=== PATIENT | female | born 1975 | race Caucasian/White ===

== ENCOUNTER → 2016-05-03 | Outpatient (CLI) | payer MEDICAID ==
[~2016-05-03] MED LIST: AMLO5TAB2 PO; ASPI81TA85 PO; CALCIUM PO; DEPRO PROVERA IM; DIOV80TA3 PO; DITR5TAB PO; EPIP0.3I2 IM; FEXO180T58 PO; FISH100049 PO; HYDRPOW14 TOP; IBUP80TA PO; METF1000 PO; MULTCAP PO; PERCOCET PO; VICT18IN SC; ZONI100C2 PO; ZYRTTAB2 PO; [UNRECOGNIZED DRUG - OTHER] PO
[2016-05-03 07:47] LABS: MEAN CORPUSCULAR HEMOGLOBIN 30.9 pg (27.0-33.0); MEAN CORPUSCULAR HGB CONC 35.7 g/dl (32.0-36.5); MEAN CORPUSCULAR VOLUME 86.4 fl (80.0-96.0); RED CELL DISTRIBUTION WIDTH 13.3 % (11.5-14.5)
[2016-05-03 08:17] LABS: ALBUMIN 3.7 GM/DL (3.2-5.2); ALBUMIN/GLOBULIN RATIO 1.28 (1.00-1.93); BILIRUBIN,DIRECT 0.2 MG/DL (0.0-0.2); BILIRUBIN,TOTAL 0.5 MG/DL (0.2-1.0); TOTAL PROTEIN 6.6 GM/DL (6.4-8.2)
== END ==
LOC: M LAB 06:59
PROVIDERS: ATTEND Student in an Organized Health Care Education/Training Program
DX: R79.89 Other specified abnormal findings of blood chemistry (principal); E11.9 Type 2 diabetes mellitus without complications; R94.5 Abnormal results of liver function studies

== ENCOUNTER → 2016-05-03 | Outpatient (CLI) | payer MEDICAID | LOC: M LAB 07:02 | PROVIDERS: ATTEND Physician Assistant Medical | DX: E11.9 Type 2 diabetes mellitus without complications (principal) ==

== ENCOUNTER → 2016-05-16 | Outpatient (CLI) | payer MEDICAID ==
--- NOTE | 2016-05-16 09:50 | REP ---
RIGHT UPPER QUADRANT SONOGRAPHY: HISTORY: Elevated liver function studies. COMPARISON STUDY: February 17, 2012. FINDINGS: The gallbladder is surgically absent. There is increased echogenicity in the liver consistent with fatty infiltration. No focal liver lesion is seen. The liver is not felt to be enlarged. Common bile duct is normal post cholecystectomy measuring 0.87 cm. The tail of the pancreas is obscured by abdominal bowel gas. No pancreatic abnormality is observed. There is no evidence of ascites or right renal abnormality. The right kidney measures 10.4 x 6.0 x 3.8 cm. IMPRESSION: Evidence of mild fatty infiltration of the liver. The patient is post cholecystectomy. Otherwise negative right upper quadrant sonography. Signed by Steven Harris MD 05/16/2016 10:24 A
== END ==
LOC: M RAD 08:44
PROVIDERS: ATTEND Student in an Organized Health Care Education/Training Program
DX: R94.5 Abnormal results of liver function studies (principal); K76.0 Fatty (change of) liver, not elsewhere classified

== ENCOUNTER → 2016-05-18 | Outpatient (CLI) | payer MEDICAID ==
[2016-05-18 09:39] LABS: REASON FOR REVIEW PLATELET MORPHOLOGY
== END ==
LOC: M LAB 08:49
PROVIDERS: ATTEND Student in an Organized Health Care Education/Training Program
DX: D69.6 Thrombocytopenia, unspecified (principal)

== ENCOUNTER 2016-06-07 17:52 | Emergency (ER) | payer MEDICAID, OTHER ==
[2016-06-07] MEDS ORDERED: IBUPROFEN 600 MG TAB As Ordered ONE (18:20)
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
--- NOTE | 2016-06-07 20:13 | REP ---
LUMBAR SPINE COMPLETE: 06/07/2016. Comparison 08/16/2014. Clinical history: Trauma. Findings: Five views are provided. Pedicles, spinous and transverse processes intact. The lower thoracic levels and visualized ribs intact. SI joints, sacral ala and foramina unremarkable. Oblique views show no spondylolysis or spondylolisthesis. Lateral view shows slight narrowing L5-S1 disc space with the other disc space heights and all vertebral body heights intact. Minor hypertrophic facet changes noted at L4-L5 and L5-S1 levels. No compression deformities or effective lesion. Impression: 1. Some minor degenerative disc changes without compression deformity of destructive lesion. Stable appearance compared to the 2014 exam. Signed by Andrzej Lynn MD 06/08/2016 07:16 P
--- NOTE | 2016-06-07 20:13 | REP ---
THORACIC SPINE SERIES, COMPLETE: 06/07/2016. Clinical history: Trauma. Comparison: 08/16/2014. Findings: Three views are provided. The pedicles, spinous and transverse processes along with the posterior rib articulations and medial clavicles were all intact. Paraspinal lines intact. The lateral view shows marginal osteophytes lower thoracic spine without compression deformity or disc space narrowing. The thoracic junction aligns normally. Impression: 1. Minor degenerative disc changes without fracture or destructive lesion. Signed by Andrzej Lynn MD 06/08/2016 07:16 P
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
== END 2016-06-07 19:15 | disposition home or self-care (01) ==
LOC: M ED 17:52
DX: S13.4XXA Sprain of ligaments of cervical spine, initial encounter (principal); S33.5XXA Sprain of ligaments of lumbar spine, initial encounter; S23.3XXA Sprain of ligaments of thoracic spine, initial encounter; E11.9 Type 2 diabetes mellitus without complications; Z79.82 Long term (current) use of aspirin; Z79.899 Other long term (current) drug therapy; Z88.1 Allergy status to other antibiotic agents; V49.50XA Passenger injured in collision with unspecified motor vehicles in traffic accident, initial encounter; Y92.410 Unspecified street and highway as the place of occurrence of the external cause; Y93.89 Activity, other specified; Y99.9 Unspecified external cause status

== ENCOUNTER → 2016-08-27 | Outpatient (CLI) | payer MEDICAID, OTHER ==
[2016-08-27 07:40] LABS: ANION GAP 8 MEQ/L (8-16); BLOOD UREA NITROGEN 13 MG/DL (7-18); CALCIUM LEVEL 8.5 MG/DL (8.5-10.1); CARBON DIOXIDE LEVEL 25 MEQ/L (21-32); CHLORIDE LEVEL 109 MEQ/L (98-107); CREATININE FOR GFR 0.85 MG/DL (0.55-1.02); GLOMERULAR FILTRATION RATE > 60.0 (>58); GLUCOSE, FASTING 145 MG/DL (70-105); SODIUM LEVEL 142 MEQ/L (136-145)
== END ==
LOC: M LAB 06:28
PROVIDERS: ATTEND Physician Assistant Medical
DX: E11.9 Type 2 diabetes mellitus without complications (principal)

== ENCOUNTER → 2016-10-23 | Outpatient (REF) | payer MEDICAID ==
[2016-10-23 13:56] LABS: ALBUMIN/GLOBULIN RATIO 1.25 (1.00-1.93); BILIRUBIN,DIRECT 0.1 MG/DL (0.0-0.2); BILIRUBIN,TOTAL 0.5 MG/DL (0.2-1.0); TOTAL PROTEIN 7.2 GM/DL (6.4-8.2)
[2016-10-23 14:02] LABS: COLLAGEN ADP 181 SECONDS (56-103)
[2016-10-26 00:07] LABS: PLATLELET ANTIBODIES 1 Negative (Negative); PLATLELET ANTIBODIES 2 Negative (Negative); PLATLELET ANTIBODIES 4 Negative (Negative)
== END ==
LOC: M SFHCPLAZ 10:52
PROVIDERS: ATTEND Family Medicine
DX: R74.0 Nonspecific elevation of levels of transaminase and lactic acid dehydrogenase [LDH] (principal); K76.0 Fatty (change of) liver, not elsewhere classified; D69.6 Thrombocytopenia, unspecified

== ENCOUNTER → 2016-11-21 | Outpatient (CLI) | payer MEDICAID ==
[~2016-11-21] MED LIST changes: +CETI10TA PO; +INVO100T PO; +LIPI10TA PO; -METF1000 PO; +METF10004 PO; +PEPC1TAB4 PO; +SUCR1SS PO; -ZYRTTAB2 PO; +ZYRTTAB8 PO
--- NOTE | 2016-11-21 09:36 | REPMRS ---
Patient History The patient states she had a clinical breast exam in Patient is postmenopausal and is nulliparous. Family history of breast cancer in maternal aunt under age 50. Taking unspecified hormones for 2 years beginning at age 39. Digital Woman Screen Mammo: November 21, 2016 - Exam #: [id number] Bilateral CC and MLO view(s) were taken. Technologist: Padmini Crowe, Technologist Prior study comparison: November 03, 2015, digital woman screen mammo performed at [facility]. November 02, 2014, digital woman screen mammo performed at [facility]. FINDINGS: There are scattered fibroglandular densities. There has been no change in the appearance of the mammogram from the prior studies. There is a mild amount of residual fibroglandular tissue which is fairly symmetric. There is no interval development of dominant mass, architectural distortion, or clustered microcalcification suggestive of malignancy. ASSESSMENT: BI-RADS/ACR category 1 mammogram. Negative. Recommendation Routine screening mammogram in 1 year (for women over age 40). This mammogram was interpreted with the aid of an FDA-approved computer-aided dectection system. Electronically Signed By: Luca Victoria MD 11/21/16 0936
== END ==
LOC: M WHC 08:19
PROVIDERS: ATTEND Nurse Practitioner Women's Health
DX: Z12.31 Encounter for screening mammogram for malignant neoplasm of breast (principal); Z78.0 Asymptomatic menopausal state; Z79.890 Hormone replacement therapy

== ENCOUNTER 2017-01-05 13:21 | Emergency (ER) | payer MEDICAID ==
[~2017-01-05] VITALS: Ht 162.6 cm; Wt 190.0 kg
[~2017-01-05 13:21] MED LIST changes: -CETI10TA PO; -INVO100T PO; -LIPI10TA PO; -PEPC1TAB4 PO; -SUCR1SS PO
[2017-01-05] MEDS ORDERED: GI COCKTAIL 50ML BTL(HYOSCYAMINE/MAALOX/LIDOCAINE VISCOUS)(1:3:1) PO ONE (13:45)
[2017-01-05] MEDS ORDERED: LIPI10TA PO (14:06)
[2017-01-05] MEDS ORDERED: CETI10TA PO (14:06)
[2017-01-05] MEDS ORDERED: INVO100T PO (14:06)
[2017-01-05 14:17] LABS: BASO % 0.5 % (0.0-1.0); EOS # 0.2 K/mm3 (0.0-0.50); LARGE UNSTAINED CELL # 0.1 K/mm3 (0.0-0.4); LYMPH # 1.2 K/mm3 (1.5-4.5); LYMPH % 20.2 % (24.0-44.0); MEAN CORPUSCULAR HEMOGLOBIN 30.9 pg (27.0-33.0); MEAN CORPUSCULAR HGB CONC 35.2 g/dl (32.0-36.5); MEAN CORPUSCULAR VOLUME 87.8 fl (80.0-96.0); MONO # 0.3 K/mm3 (0.0-0.8); MONO % 4.6 % (0.0-5.0); NEUTROPHILS % 70.7 % (36.0-66.0); PLATELET COUNT, AUTOMATED 118 k/mm3 (150-450); RED CELL DISTRIBUTION WIDTH 13.5 % (11.5-14.5); WHITE BLOOD COUNT 5.7 K/mm3 (4.0-10.0)
[2017-01-05 14:36] LABS: ALBUMIN 3.9 GM/DL (3.2-5.2); ALBUMIN/GLOBULIN RATIO 1.34 (1.00-1.93); ALKALINE PHOSPHATASE 85 U/L (45-117); ALT/SGPT 45 U/L (12-78); ANION GAP 11 MEQ/L (8-16); AST/SGOT 22 U/L (15-37); BILIRUBIN,DIRECT 0.2 MG/DL (0.0-0.2); BILIRUBIN,TOTAL 0.6 MG/DL (0.2-1.0); BLOOD UREA NITROGEN 12 MG/DL (7-18); CALCIUM LEVEL 9.5 MG/DL (8.5-10.1); CARBON DIOXIDE LEVEL 24 MEQ/L (21-32); CHLORIDE LEVEL 107 MEQ/L (98-107); CREATININE FOR GFR 0.92 MG/DL (0.55-1.02); GLOMERULAR FILTRATION RATE > 60.0 (>58); GLUCOSE, FASTING 231 MG/DL (70-105); POTASSIUM SERUM 3.6 MEQ/L (3.5-5.1); SODIUM LEVEL 142 MEQ/L (136-145); TOTAL PROTEIN 6.8 GM/DL (6.4-8.2)
[2017-01-05] MEDS ORDERED: SUCRALFATE SUSP 1GM/10ML UD PO ONE (14:45)
[2017-01-05] MEDS ORDERED: PEPC1TAB4 PO (14:45)
[2017-01-05] MEDS ORDERED: SUCR1SS PO (14:45)
[2017-01-05] MEDS ORDERED: ISOVUE-370 76% 100ML VIAL (Q9967) As Ordered ONE (15:38)
[2017-01-05] MEDS ORDERED: PANTOPRAZOLE 40MG TAB (PROTONIX) PO ONE (16:30)
--- NOTE | 2017-01-05 16:51 | REP ---
Clinical: Abdominal pain. Technique: Axial contrast enhanced images from the lung bases to the pubic symphysis using 100 ml Isovue 370 intravenous contrast material with coronal and sagittal re-formations. Findings: Lung bases cannot exclude mild bronchitis. Visualized heart and pericardium normal. Mild fatty infiltration to the liver suggested without focal hepatic lesion. Spleen, pancreas, bilateral adrenal glands and kidneys are normal. 2-3 mm bilateral nonobstructing nephroliths are suggested without perinephric stranding or hydronephrosis. The enteric system demonstrates diffusely fluid-filled nondilated small bowel and cecum which is nonspecific but cannot exclude enteritis. Pelvis demonstrates normal bladder and evidence for prior hysterectomy. No ascites. No free air. No adenopathy. Vasculature normal. Surrounding musculoskeletal structures are intact. Impression: Cannot exclude a mild enteritis. Cannot exclude very mild lower lobe bronchitis. 2-3 mm bilateral nonobstructing nephroliths. No further acute abdominopelvic pathology appreciated. Signed by Boni Sol MD 01/05/2017 04:42 P
[2017-01-05 17:29] VITALS: BP 114/92
--- NOTE | 2017-01-05 18:25 | ECGEPIP ---
Stationary ECG Study [facility] - ED Test Date: 2017-01-05 Pat Name: ANKUSH LYNN Department: Room: - Gender: F Title Officer: rn : 1975 Requested By: Kylee Anderson Order Number: [id number] Reading MD: Kylee Anderson Measurements Intervals [place] Rate: 72 P: 31 MO: 163 QRS: 81 QRSD: 89 T: 13 QT: 394 QTc: 434 Interpretive Statements SINUS RHYTHM NONSPECIFIC T-WAVE ABNORMALITY LOW VOLTAGE LIMB PRWP Electronically Signed On 01-05-2017 18:25:25 EDT by Kylee Anderson
== END 2017-01-05 17:37 | disposition home or self-care (01) ==
LOC: EDBD 13:21 → M ED 13:21
DX: R10.9 Unspecified abdominal pain (principal); E11.9 Type 2 diabetes mellitus without complications; I10 Essential (primary) hypertension; E78.9 Disorder of lipoprotein metabolism, unspecified; G43.909 Migraine, unspecified, not intractable, without status migrainosus; K90.0 Celiac disease; K76.0 Fatty (change of) liver, not elsewhere classified; F70 Mild intellectual disabilities; Z87.820 Personal history of traumatic brain injury; M62.81 Muscle weakness (generalized); Z88.0 Allergy status to penicillin; Z79.82 Long term (current) use of aspirin; Z79.899 Other long term (current) drug therapy; Z79.84 Long term (current) use of oral hypoglycemic drugs
CPT/HCPCS: 36415; 74177; 80048; 80076; 83690; 85025; 93005; 99284; Q9967

== ENCOUNTER → 2017-01-10 | Outpatient (REF) | payer MEDICAID ==
[~2017-01-10] MED LIST changes: +CETI10TA PO; +INVO100T PO; +LIPI10TA PO; +PEPC1TAB4 PO; +SUCR1SS PO
[2017-01-10 13:52] LABS: BASO # 0.1 K/mm3 (0.0-0.2); EOS # 0.2 K/mm3 (0.0-0.50); EOS % 4.3 % (0.0-3.0); LARGE UNSTAINED CELL # 0.1 K/mm3 (0.0-0.4); LARGE UNSTAINED CELL % 0.9 % (0.0-4.0); LYMPH # 1.8 K/mm3 (1.5-4.5); LYMPH % 31.2 % (24.0-44.0); MEAN CORPUSCULAR HEMOGLOBIN 30.5 pg (27.0-33.0); MEAN CORPUSCULAR HGB CONC 34.3 g/dl (32.0-36.5); MONO # 0.3 K/mm3 (0.0-0.8); MONO % 5.4 % (0.0-5.0); NEUTROPHILS # 3.2 K/mm3 (1.8-7.7); NEUTROPHILS % 57.2 % (36.0-66.0); PLATELET COUNT, AUTOMATED 126 k/mm3 (150-450); RED CELL DISTRIBUTION WIDTH 13.8 % (11.5-14.5); WHITE BLOOD COUNT 5.6 K/mm3 (4.0-10.0)
== END ==
LOC: M SFHCPLAZ 10:47
PROVIDERS: ATTEND Family Medicine
DX: D69.6 Thrombocytopenia, unspecified (principal)

== ENCOUNTER → 2017-02-10 | Outpatient (CLI) | payer MEDICAID ==
--- NOTE | 2017-02-10 18:54 | REP ---
Right middle finger four views : There is no fracture or dislocation. Mineralization and joint spaces are normal. There are no calcifications or foreign bodies. Impression: Negative Right middle finger . Signed by Luca Mendosa MD 02/10/2017 06:45 P
== END ==
LOC: M RAD 18:06
PROVIDERS: ATTEND Physician Assistant Medical
DX: S67.192A Crushing injury of right middle finger, initial encounter (principal); X58.XXXA Exposure to other specified factors, initial encounter; Y92.89 Other specified places as the place of occurrence of the external cause; Y99.9 Unspecified external cause status; Y93.9 Activity, unspecified

== ENCOUNTER → 2017-03-26 | Outpatient (CLI) | payer MEDICAID ==
[2017-03-26 15:25] LABS: ANION GAP 8 MEQ/L (8-16); BLOOD UREA NITROGEN 18 MG/DL (7-18); CALCIUM LEVEL 9.5 MG/DL (8.5-10.1); CARBON DIOXIDE LEVEL 31 MEQ/L (21-32); CHLORIDE LEVEL 103 MEQ/L (98-107); GLOMERULAR FILTRATION RATE > 60.0 (>58); GLUCOSE, FASTING 142 MG/DL (70-105); SODIUM LEVEL 142 MEQ/L (136-145)
== END ==
LOC: M LAB 13:57
PROVIDERS: ATTEND Nurse Practitioner Family
DX: E11.9 Type 2 diabetes mellitus without complications (principal)

== ENCOUNTER → 2017-06-26 | Outpatient (REF) | payer MEDICAID ==
[2017-06-26 13:25] LABS: ANION GAP 6 MEQ/L (8-16); BLOOD UREA NITROGEN 15 MG/DL (7-18); CALCIUM LEVEL 8.9 MG/DL (8.5-10.1); CARBON DIOXIDE LEVEL 29 MEQ/L (21-32); CHLORIDE LEVEL 109 MEQ/L (98-107); CHOLESTEROL LEVEL 121 MG/DL (<200); CHOLESTEROL RISK RATIO 3.184 (<5); CREATININE FOR GFR 0.75 MG/DL (0.55-1.30); GLOMERULAR FILTRATION RATE > 60.0 (>58); GLUCOSE, FASTING 153 MG/DL (70-100); HDL CHOLESTEROL 38 MG/DL (>40); LDL CHOLESTEROL 43.2 MG/DL (<100); NON-HDL-C 83 MG/DL; POTASSIUM SERUM 4.5 MEQ/L (3.5-5.1); SODIUM LEVEL 144 MEQ/L (136-145); TRIGLYCERIDES LEVEL 199 MG/DL (<150)
[2017-06-26 13:59] LABS: ESTIMATED AVERAGE GLUCOSE 154 MG/DL (60-110)
== END ==
LOC: M LABDRAW1 11:51
DX: E11.9 Type 2 diabetes mellitus without complications (principal); E78.2 Mixed hyperlipidemia
CPT/HCPCS: 83036

== ENCOUNTER → 2017-11-21 | Outpatient (CLI) | payer MEDICAID | LOC: M WHC 08:59 | DX: Z12.31 Encounter for screening mammogram for malignant neoplasm of breast (principal) ==

== ENCOUNTER → 2017-12-15 | Outpatient (CLI) | payer MEDICAID ==
[2017-12-15 08:36] LABS: ANION GAP 10 MEQ/L (8-16); BLOOD UREA NITROGEN 16 MG/DL (7-18); CALCIUM LEVEL 8.6 MG/DL (8.5-10.1); CARBON DIOXIDE LEVEL 24 MEQ/L (21-32); CHLORIDE LEVEL 110 MEQ/L (98-107); CREATININE FOR GFR 0.86 MG/DL (0.55-1.30); GLOMERULAR FILTRATION RATE > 60.0 (>58); GLUCOSE, FASTING 133 MG/DL (70-100); POTASSIUM SERUM 3.8 MEQ/L (3.5-5.1); SODIUM LEVEL 144 MEQ/L (136-145)
[2017-12-15 08:38] LABS: ESTIMATED AVERAGE GLUCOSE 157 MG/DL (60-110); HEMOGLOBIN A1c 7.1 %
[2017-12-15 08:50] LABS: CREATININE, URINE 89.9 MG/DL; MALB URINE SIEMENS 5.7 MG/L; MAU/CREAT RATIO 6.3 MCG/MG (0.0-30.0)
== END ==
LOC: M LAB 06:46
DX: E11.9 Type 2 diabetes mellitus without complications (principal)

== ENCOUNTER → 2017-12-16 | Outpatient (CLI) | payer MEDICAID ==
[2017-12-16 07:40] LABS: BASO # 0.1 10^3/uL (0.0-0.2); EOS # 0.2 10^3/uL (0.0-0.50); EOS % 3.6 % (0.0-3.0); HEMATOCRIT 42.1 % (36.0-47.0); HEMOGLOBIN 14.9 g/dl (12.0-15.5); IMMATURE GRANULOCYTE % 0.2 % (0-3.0); LYMPH # 1.9 10^3/uL (1.5-4.5); LYMPH % 32.9 % (24.0-44.0); MEAN CORPUSCULAR HGB CONC 35.4 g/dl (32.0-36.5); MEAN CORPUSCULAR VOLUME 87.7 fl (80.0-96.0); MONO # 0.4 10^3/uL (0.0-0.8); MONO % 6.7 % (0.0-5.0); NEUTROPHILS # 3.2 10^3/uL (1.8-7.7); NEUTROPHILS % 55.6 % (36.0-66.0); PLATELET COUNT, AUTOMATED 144 10^3/uL (150-450); RED CELL DISTRIBUTION WIDTH 13.9 % (11.5-14.5); WHITE BLOOD COUNT 5.8 10^3/uL (4.0-10.0)
[2017-12-16 08:22] LABS: ALBUMIN/GLOBULIN RATIO 1.38 (1.00-1.93); ALKALINE PHOSPHATASE 88 U/L (45-117); ALT/SGPT 46 U/L (12-78); ANION GAP 9 MEQ/L (8-16); AST/SGOT 29 U/L (7-37); BILIRUBIN,TOTAL 0.7 MG/DL (0.2-1.0); BLOOD UREA NITROGEN 20 MG/DL (7-18); CALCIUM LEVEL 8.8 MG/DL (8.5-10.1); CARBON DIOXIDE LEVEL 26 MEQ/L (21-32); CHLORIDE LEVEL 109 MEQ/L (98-107); CHOLESTEROL LEVEL 116 MG/DL (<200); CHOLESTEROL RISK RATIO 3.135 (<5); GLOMERULAR FILTRATION RATE > 60.0 (>58); GLUCOSE, FASTING 152 MG/DL (70-100); HDL CHOLESTEROL 37 MG/DL (>40); LDL CHOLESTEROL 38.8 MG/DL (<100); NON-HDL-C 79 MG/DL; SODIUM LEVEL 144 MEQ/L (136-145); TOTAL PROTEIN 6.9 GM/DL (6.4-8.2); TRIGLYCERIDES LEVEL 201 MG/DL (<150)
== END ==
LOC: M LAB 06:55
DX: K76.0 Fatty (change of) liver, not elsewhere classified (principal)
CPT/HCPCS: 80053

== ENCOUNTER → 2018-01-15 | Outpatient (CLI) | payer MEDICAID | LOC: M RAD 08:26 | DX: K76.0 Fatty (change of) liver, not elsewhere classified (principal); Z90.49 Acquired absence of other specified parts of digestive tract | CPT/HCPCS: 76705 ==

== ENCOUNTER → 2018-01-28 | Outpatient (CLI) | payer MEDICAID ==
[2018-01-28 08:36] LABS: ALBUMIN 4.2 GM/DL (3.2-5.2); ALBUMIN/GLOBULIN RATIO 1.56 (1.00-1.93); ALKALINE PHOSPHATASE 81 U/L (45-117); ALT/SGPT 51 U/L (12-78); ANION GAP 9 MEQ/L (8-16); AST/SGOT 31 U/L (7-37); BILIRUBIN,TOTAL 0.8 MG/DL (0.2-1.0); BLOOD UREA NITROGEN 23 MG/DL (7-18); CALCIUM LEVEL 9.2 MG/DL (8.5-10.1); CARBON DIOXIDE LEVEL 24 MEQ/L (21-32); CHLORIDE LEVEL 114 MEQ/L (98-107); CREATININE FOR GFR 0.77 MG/DL (0.55-1.30); GLOMERULAR FILTRATION RATE > 60.0 (>58); GLUCOSE, FASTING 142 MG/DL (70-100); POTASSIUM SERUM 3.9 MEQ/L (3.5-5.1); SODIUM LEVEL 147 MEQ/L (136-145); TOTAL PROTEIN 6.9 GM/DL (6.4-8.2)
== END ==
LOC: M LAB 06:25
DX: K76.0 Fatty (change of) liver, not elsewhere classified (principal)
CPT/HCPCS: 80053

== ENCOUNTER → 2018-02-18 | Outpatient (CLI) | payer MEDICAID | LOC: M RAD 09:29 | DX: M25.511 Pain in right shoulder (principal) | CPT/HCPCS: 73030 ==

== ENCOUNTER → 2018-06-09 | Outpatient (CLI) | payer MEDICAID ==
[~2018-06-09] MED LIST changes: -AMLO5TAB2 PO; +AMLO5TAB6 PO; +ESTR0.059 TD; -PEPC1TAB4 PO; +PEPC1TAB5 PO
[2018-06-09 07:24] LABS: BASO # 0.1 10^3/uL (0.0-0.2); BASO % 1.1 % (0.0-1.0); EOS # 0.2 10^3/uL (0.0-0.50); EOS % 4.2 % (0.0-3.0); HEMOGLOBIN 15.2 g/dl (12.0-15.5); LYMPH # 1.9 10^3/uL (1.5-4.5); LYMPH % 33.6 % (24.0-44.0); MEAN CORPUSCULAR HEMOGLOBIN 31.1 pg (27.0-33.0); MEAN CORPUSCULAR HGB CONC 34.5 g/dl (32.0-36.5); MEAN CORPUSCULAR VOLUME 90.2 fl (80.0-96.0); MONO # 0.4 10^3/uL (0.0-0.8); MONO % 6.4 % (0.0-5.0); NEUTROPHILS % 54.3 % (36.0-66.0); PLATELET COUNT, AUTOMATED 131 10^3/uL (150-450); RED BLOOD COUNT 4.88 10^6/uL (4.00-5.40); WHITE BLOOD COUNT 5.5 10^3/uL (4.0-10.0)
[2018-06-09 07:45] LABS: ALT/SGPT 31 U/L (12-78); BILIRUBIN,TOTAL 0.8 MG/DL (0.2-1.0); BLOOD UREA NITROGEN 14 MG/DL (7-18); CALCIUM LEVEL 8.7 MG/DL (8.5-10.1); CARBON DIOXIDE LEVEL 26 MEQ/L (21-32); CHLORIDE LEVEL 108 MEQ/L (98-107); CHOLESTEROL LEVEL 107 MG/DL (<200); CHOLESTEROL RISK RATIO 3.057 (<5); CREATININE FOR GFR 0.89 MG/DL (0.55-1.30); GLOMERULAR FILTRATION RATE > 60.0 (>58); GLUCOSE, FASTING 146 MG/DL (70-100); HDL CHOLESTEROL 35 MG/DL (>40); LDL CHOLESTEROL 28 MG/DL (<100); NON-HDL-C 72 MG/DL; POTASSIUM SERUM 3.7 MEQ/L (3.5-5.1); SODIUM LEVEL 141 MEQ/L (136-145); TOTAL PROTEIN 6.4 GM/DL (6.4-8.2); TRIGLYCERIDES LEVEL 219 MG/DL (<150)
== END ==
LOC: M LAB 06:46
PROVIDERS: ATTEND Student in an Organized Health Care Education/Training Program
DX: D69.6 Thrombocytopenia, unspecified (principal); K76.0 Fatty (change of) liver, not elsewhere classified; E78.2 Mixed hyperlipidemia

== ENCOUNTER → 2018-06-16 | Outpatient (CLI) | payer MEDICAID ==
--- NOTE | 2018-06-16 11:21 | REP ---
HEPATIC ULTRASOUND: 06/16/2018. Comparison: 01/15/2018. Clinical history: KAM. Findings: Sonographic evaluation again shows the liver diffusely hyperechoic in a homogeneous fashion consistent with fatty infiltration. There is no discrete hepatic mass, intrahepatic biliary dilatation nor perihepatic ascites. Gallbladder is surgically absent. Common duct is 6 mm and unremarkable. Views of the pancreas are quite limited due to gas shadowing. The right kidney is 10.1 x 5.3 x 3.7 cm without hydronephrosis or stone. Impression: 1. Diffuse fatty infiltration of the liver, otherwise negative study. 2. Status post cholecystectomy, no common duct dilatation or stone. Stable examination. Electronically Signed by Andrzej Lynn MD 06/16/2018 05:48 P
== END ==
LOC: M RAD 08:02
PROVIDERS: ATTEND Student in an Organized Health Care Education/Training Program
DX: K76.0 Fatty (change of) liver, not elsewhere classified (principal)

== ENCOUNTER → 2018-06-23 | Outpatient (REF) | payer MEDICAID ==
[2018-06-23 15:41] LABS: HEMOGLOBIN A1c 7.3 %
== END ==
LOC: M LABDRAW1 09:30
PROVIDERS: ATTEND Nurse Practitioner Family
DX: E11.9 Type 2 diabetes mellitus without complications (principal)

== ENCOUNTER → 2018-07-06 | Outpatient (CLI) | payer MEDICAID ==
[2018-07-06 07:23] LABS: HEMOGLOBIN A1c 6.6 %
[2018-07-06 07:31] LABS: MALB URINE SIEMENS < 5.0 MG/L; MAU/CREAT RATIO 4.3 MCG/MG (0.0-30.0)
== END ==
LOC: M LAB 06:35
PROVIDERS: ATTEND Student in an Organized Health Care Education/Training Program
DX: E11.9 Type 2 diabetes mellitus without complications (principal)

== ENCOUNTER → 2019-07-02 | Outpatient (CLI) | payer MEDICAID ==
[~2019-07-02] MED LIST changes: +ZONI100C17 PO; -ZONI100C2 PO
--- NOTE | 2019-07-02 17:43 | REPMRS ---
Patient History The patient states she had a clinical breast exam in 06/2019. Patient is postmenopausal and is nulliparous. Family history of breast cancer under age 50 in maternal aunt. Taking estrogen for 5 years. Took unspecified hormones for 2 years beginning at age 39. Digital Woman Screen Mammo: July 02, 2019 - Exam #: [id number] Bilateral CC and MLO view(s) were taken. Technologist: Jayne Jackson, Technologist Prior study comparison: November 21, 2017, [facility] November 21, 2016, [facility] November 03, 2015, [facility]. FINDINGS: There are scattered fibroglandular densities. There has been no change in the appearance of the mammogram from the prior studies. There is a mild amount of scattered fibroglandular density which is fairly symmetric. There is no interval development of dominant mass, architectural distortion, or grouped microcalcification suggestive of malignancy. 3-D tomosynthesis shows no additional findings. Assessment: BI-RADS/ACR category 1 mammogram. Negative Mammogram. Recommendation Routine screening mammogram of both breasts in 1 year (for women over age 40). This patient's Lifetime Breast Cancer Risk is estimated at 15.9 %. This mammogram was interpreted with the aid of an FDA-approved computer-aided dectection system. Electronically Signed By: Randal Harris MD 07/02/19 [id number]
== END ==
LOC: M WHC 15:18
PROVIDERS: ATTEND Nurse Practitioner Women's Health
DX: Z12.31 Encounter for screening mammogram for malignant neoplasm of breast (principal)

== ENCOUNTER → 2019-09-17 | Outpatient (REF) | payer MEDICAID ==
[2019-09-17 13:49] LABS: ALBUMIN 4.4 GM/DL (3.2-5.2); ALT/SGPT 21 U/L (12-78); BILIRUBIN,TOTAL 0.9 MG/DL (0.2-1.0); BLOOD UREA NITROGEN 21 MG/DL (7-18); CALCIUM LEVEL 9.6 MG/DL (8.5-10.1); CARBON DIOXIDE LEVEL 28 MEQ/L (21-32); CHLORIDE LEVEL 110 MEQ/L (98-107); CHOLESTEROL LEVEL 170 MG/DL (<200); CHOLESTEROL RISK RATIO 4.594 (<5); CREATININE FOR GFR 1.02 MG/DL (0.55-1.30); GLOMERULAR FILTRATION RATE > 60.0 (>58); GLUCOSE, FASTING 136 MG/DL (70-100); HDL CHOLESTEROL 37 MG/DL (>40); LDL CHOLESTEROL 84 MG/DL (<100); NON-HDL-C 133 MG/DL; POTASSIUM SERUM 4.5 MEQ/L (3.5-5.1); SODIUM LEVEL 143 MEQ/L (136-145); TOTAL PROTEIN 7.6 GM/DL (6.4-8.2); TRIGLYCERIDES LEVEL 243 MG/DL (<150)
[2019-09-17 14:04] LABS: MALB URINE SIEMENS 15.5 MG/L
[2019-09-17 15:19] LABS: HEMOGLOBIN A1c 6.1 %
== END ==
LOC: M SFHCPLAZ 10:12
PROVIDERS: ATTEND Family Medicine
DX: E11.9 Type 2 diabetes mellitus without complications (principal); K76.0 Fatty (change of) liver, not elsewhere classified; E78.2 Mixed hyperlipidemia

== ENCOUNTER → 2019-09-28 | Outpatient (CLI) | payer MEDICAID ==
--- NOTE | 2019-09-28 16:29 | REP ---
REASON: Followup fatty infiltration of the liver. COMPARISON: 06/16/2018 The patient is status post cholecystectomy. There is no evidence of intrahepatic or extrahepatic ductal dilatation. There common bile duct measures between 7 and 8 mm. Once again, diffuse increased echoes are seen throughout the hepatic parenchyma status quo. There are no masses. The imaged portion of the pancreas and right kidney are within normal limits and unchanged. IMPRESSION: Fatty infiltration of the liver.
== END ==
LOC: M WHC 09:35
PROVIDERS: ATTEND Obstetrics & Gynecology
DX: E11.9 Type 2 diabetes mellitus without complications (principal); K76.0 Fatty (change of) liver, not elsewhere classified

== ENCOUNTER → 2019-11-17 | Outpatient (CLI) | payer MEDICAID ==
[~2019-11-17] MED LIST changes: +AMLO1TAB24 PO; -AMLO5TAB6 PO; -ASPI81TA85 PO; +ASPI81TA86 PO
--- NOTE | 2019-11-17 10:10 | REP ---
Clinical: Right-sided sciatica . Technique: AP, lateral, flexion/extension, bilateral oblique, and coned-down views. Findings: Alignment and lordosis is maintained. The vertebral bodies including transverse process and spinous processes are intact and normal. There is no evidence for acute fracture / compression injury or subluxation. No evidence for spondylolysis or spondylolisthesis. Lateral views demonstrate minimal disc space narrowing and endplate sclerosis at the L5-S1 level. Impression: Mild focal degenerative spondylosis at L5-S1. Electronically Signed by Boni Sol MD 11/17/2019 10:02 A
== END ==
LOC: M RAD 09:23 → M LAB 09:23
PROVIDERS: ATTEND Student in an Organized Health Care Education/Training Program
DX: M54.31 Sciatica, right side (principal)

== ENCOUNTER 2019-12-23 10:38 | Outpatient (RCR) | payer MEDICAID | END 2019-12-27 | LOC: M PT 10:38 | PROVIDERS: ATTEND Student in an Organized Health Care Education/Training Program | DX: M54.31 Sciatica, right side (principal) ==

== ENCOUNTER 2020-01-13 11:30 | Outpatient (RCR) | payer MEDICAID | END 2020-01-26 | LOC: M PT 11:30 | PROVIDERS: ATTEND Student in an Organized Health Care Education/Training Program | DX: M54.31 Sciatica, right side (principal) ==